=== PATIENT | male | born 1980 | race Caucasian/White ===

== ENCOUNTER 2017-09-03 15:14 | Emergency (ER) | payer OTHER ==
[2017-09-03] MEDS ORDERED: Acetaminophen 500 MG TAB ONE (15:36)
--- NOTE | 2017-09-03 16:09 | RAD ---
RIGHT HAND THREE VIEWS: 09/03/17 HISTORY: 37-year-old male with history of right hand injury. FINDINGS: There is some volar angulation of the fifth metacarpal. No evidence for acute fracture or dislocation . IMPRESSION: Some volar angulation of the fifth metacarpal which appears to be related to old trauma. No evidence for acute fracture or dislocation. POS: [facility]
== END 2017-09-03 16:23 ==
LOC: NAV ERS 15:14
DX: S60.221A Contusion of right hand, initial encounter (principal); E03.9 Hypothyroidism, unspecified; Z79.899 Other long term (current) drug therapy; W23.0XXA Caught, crushed, jammed, or pinched between moving objects, initial encounter; Y92.149 Unspecified place in prison as the place of occurrence of the external cause